=== PATIENT | female | born 1980 | race Two or more races ===

== ENCOUNTER → 2017-02-10 | Outpatient (CLI) | payer BC ==
[~2017-02-10] MED LIST: TYLENOL WITH C1 EACH PO; ZOFRAN4 MG PO
== END | disposition disaster alternative care site (69) ==
LOC: GRAD 12:48
DX: R31.9 Hematuria, unspecified (principal); N20.1 Calculus of ureter; R10.2 Pelvic and perineal pain; N28.89 Other specified disorders of kidney and ureter; Z87.442 Personal history of urinary calculi; Z90.49 Acquired absence of other specified parts of digestive tract

== ENCOUNTER 2017-03-14 20:46 | Emergency (ER) | payer BC ==
--- NOTE | ~2017-03-14 | ER ---
PATIENT'S NAME: MARIA ANTONIA MAYFIELD [facility] AGE: 37 Y [address] ROOM: [place] [address] LOCATION: ED ADMIT DATE: 03/14/2017 ER/Outpatient Report DISCHARGE DATE: 03/14/2017 FAMILY PHYSICIAN: Physician, Unknown ATTENDING PHYSICIAN: Joo Purvis Admission date and time documented in the medical record. I saw the patient at 2055 hours. CHIEF COMPLAINT: Anterior chest pain. HISTORY OF PRESENT ILLNESS: This patient is a 37-year-old female, who comes in with anterior chest pain just left of the mid to lower sternal border. No shortness of breath, diaphoresis, nausea, vomiting, diarrhea. No lightheadedness, dizziness, syncope, or near syncope. No fall or trauma. No recent colds, coughs, flus, fever, chills, or sweats. No headache; eyes, ears, nose, throat, neck, or spine pain. No abdominal pain. No diarrhea. No urinary complaints. No joint or muscle swelling, redness, or pain. No skin eruptions or rash. No endocrine problems, neuro changes, or psych issues. HOME MEDICATIONS: See attached medication list. ALLERGIES: NONE. SOCIAL HISTORY: Nonsmoker. Occasional intake of alcohol. SIGNIFICANT PAST MEDICAL HISTORY: Gastroesophageal reflux, dyslipidemia, nephrolithiasis. OPERATIONS: Cystoscopy with stent placement, lithotripsy, bilateral breast reduction, cholecystectomy, ACL knee repair. REVIEW OF SYSTEMS: All systems reviewed by me are negative with the exception of those discussed in the history of the present illness. PHYSICAL EXAMINATION: VITAL SIGNS: Temperature 98.3 tympanic, pulse 73, respirations 16, blood pressure 112-77, O2 sat on room air is 98%. PATIENT'S NAME: MARIA ANTONIA MAYFIELD [facility] AGE: 37 Y [address] ROOM: [place] [address] LOCATION: ED ADMIT DATE: 03/14/2017 ER/Outpatient Report DISCHARGE DATE: 03/14/2017 FAMILY PHYSICIAN: Physician, Unknown ATTENDING PHYSICIAN: Joo Purvis HEAD: Normocephalic. EYES, EARS, NOSE, THROAT: Clear. NECK: Negative. SPINE: Negative. LUNGS: Clear. Good air flow. No rales, rhonchi, or wheezes. HEART: Regular. Pulses are palpable. The patient has point tenderness just left of the mid lower sternum, anteriorly reproduces her pain. No radiation of the pain to the shoulder, arm, neck, jaw, or back. ABDOMEN: Soft, nondistended, nontender. Good bowel tones. No organomegaly or abnormal mass palpable. EXTREMITIES: Intact. NEUROVASCULAR: Intact. SKIN: Clear. No skin eruptions or rash. IMAGING DATA: Chest x-ray showed no acute infiltrate or changes. EKG showed sinus rhythm. No acute ST elevation, ischemic change, or arrhythmia. LABORATORY DATA: CMS was normal except for a low potassium of 3.4, elevated glucose 124, magnesium was 2.1. CPK was 78. Point of care cardiac enzymes were normal. D- dimer was 0.26. White count 7600, 58 segs, 32 lymphs, 7 monos, 2 eos, 1 baso. Hemoglobin was 14.3, hematocrit 41.8, platelet count is 255,000. PTT was 26, pro-time is 10 with an INR of 0.95. Initially tried a GI cocktail without improvement. Did put a saline lock and gave her Solu-Medrol 125 mg IV and Toradol 30 mg IV with some mild improvement in her pain. IMPRESSION: 1. Chest pain just left of the mid lower left sternum anteriorly, etiology uncertain, most likely musculoskeletal or costochondritis. 2. Gastroesophageal reflux. 3. Dyslipidemia. 4. History of nephrolithiasis. PLAN: The patient was dismissed home. Observation. Activity as tolerated. Continue present home medications and care. Heating pad to sore areas intermittently as needed. Medrol Dosepak take as directed. Toradol 10 mg 1 every 6 hours x12 doses. Follow up with personal physician in 7 days if no improvement or as needed. Discussion ensued with the patient concerning my findings and recommendations, she understands. PATIENT'S NAME: MARIA ANTONIA MAYFIELD [facility] AGE: 37 Y [address] ROOM: [place] [address] LOCATION: ED ADMIT DATE: 03/14/2017 ER/Outpatient Report DISCHARGE DATE: 03/14/2017 FAMILY PHYSICIAN: , Unknown ATTENDING PHYSICIAN: Joo Purvis MD SDS/modl /[id number] d: 03/15/17 0001 t: 03/15/17 0533, OUTPATIENT REPORT
[2017-03-14 21:23] LABS: BASOPHIL # 0.1 K/uL (0.0-0.2); BASOPHIL % 0.7 %; EOSINOPHIL # 0.1 K/uL (0.0-0.5); EOSINOPHIL % 1.6 %; HEMATOCRIT 41.8 % (33.0-46.0); HEMOGLOBIN 14.3 g/dL (11.0-15.0); IMMATURE GRANULOCYTE % 0.3 %; LYMPHOCYTE # 2.4 K/uL (0.8-4.0); LYMPHOCYTE % 32.1 %; MCH 31.5 pg (27.0-34.0); MCHC 34.2 gm/dL (32.0-36.5); MCV 92.1 fl (83.0-98.0); MONOCYTE # 0.6 K/uL (0.0-1.0); MONOCYTE % 7.3 %; MPV 11.2 fl (9.4-12.4); NEUTROPHIL # (ANC) 4.4 K/uL (1.8-7.8); NRBC % 0 /100WBC (0-0.00); PLATELET COUNT 255 K/uL (150-450); RBC 4.54 M/uL (3.50-5.50); RDW-CV 12.4 % (11.9-14.6); WBC 7.6 K/uL (4.0-11.0)
[2017-03-14 21:32] LABS: INR - (THERAPEUTIC) 0.95 (0.92-1.07); PTT 26 SECONDS (25-32)
[2017-03-14 21:46] LABS: ALBUMIN 3.5 gm/dL (3.5-5.0); ALK PHOS 81 IU/L (33-138); ALT 31 IU/L (12-78); ANION GAP 12.4 (10.0-19.0); AST 17 IU/L (10-40); BLOOD UREA NITROGEN 16 mg/dL (6-24); CALCIUM 8.9 mg/dL (8.5-10.5); CHLORIDE 110 mMol/L (96-110); CO2 21 mMol/L (22-32); CPK 78 IU/L (21-215); CREATININE 0.8 mg/dL (0.5-1.1); MAGNESIUM 2.1 mg/dL (1.8-2.6); POTASSIUM 3.4 mMol/L (3.7-5.1); SODIUM 140 mMol/L (135-145); TOTAL BILIRUBIN 0.5 mg/dL (0.0-1.5)
== END 2017-03-14 22:05 ==
LOC: GMED 20:46
PROVIDERS: Emergency Medicine
DX: R07.89 Other chest pain (principal); K21.9 Gastro-esophageal reflux disease without esophagitis; E78.5 Hyperlipidemia, unspecified; Z87.442 Personal history of urinary calculi; Z90.49 Acquired absence of other specified parts of digestive tract; Z98.890 Other specified postprocedural states; Z79.3 Long term (current) use of hormonal contraceptives; Z79.899 Other long term (current) drug therapy
CPT/HCPCS: J1885; J2930